=== PATIENT | female | born 1955 | race African-American/Black ===

== ENCOUNTER 2021-02-26 10:18 | Inpatient (IN) | payer MEDICARE, MEDICAID ==
[~2021-02-26] VITALS: Ht 157.5 cm; Wt 75.7 kg
[2021-02-26 12:06] LABS: BASOPHILS % 0.5 % (0.0-2.0); EOSINOPHILS % 0.8 % (0.0-5.0); HEMATOCRIT. 36.9 % (36.0-48.0); HEMOGLOBIN. 12.5 g/dL (12.0-16.0); LYMPHOCYTES % 34.1 % (20.0-50.0); MEAN CORPUSCULAR HEMOGLOBIN 27.4 pg (28.0-32.0); MEAN CORPUSCULAR VOLUME 80.8 fL (81.0-99.0); MEAN PLATELET VOLUME 8.8 fl (7.4-10.4); MONOCYTES % 6.2 % (2.0-8.0); NEUTROPHILS % 58.4 % (40.0-76.0); PLATELET 242 x1000/uL (130-400); RED BLOOD CELL COUNT 4.57 mill/uL (4.2-5.4); RED CELL DISTRIBUTION WIDTH 14.2 % (11.6-14.6)
[2021-02-26 12:11] LABS: CHLORIDE 103 mEq/L (98-107)
[2021-02-26] MEDS ORDERED: ASPIRIN 81MG TABLET PO ONE (13:15)
[2021-02-26] MEDS ORDERED: ACETAMINOPHEN 325MG TABLET PO PRN (17:30)
[2021-02-26] MEDS ORDERED: NITROGLYCERIN 0.4MG TABLET SL SL PRN (17:30)
[2021-02-26] MEDS ORDERED: CLONIDINE 0.1MG TABLET PO PRN (17:30)
[2021-02-26] MEDS ORDERED: LORAZEPAM 0.5MG TABLET PO PRN (17:30)
[2021-02-26] MEDS ORDERED: IPRATROPIUM/ALBUTEROL 0.5-3(2.5)MG/3ML NEB HHN PRN (17:30)
[2021-02-26] MEDS ORDERED: DOCUSATE SODIUM 100MG CAPSULE PO PRN (17:30)
[2021-02-26] MEDS ORDERED: ONDANSETRON HCL 4MG/2ML INJ IV PRN (17:30)
[2021-02-26 19:01] VITALS: BP 148/90
[2021-02-26 20:00] VITALS: BP 133/77
[2021-02-27] VITALS: BP 104/71
[2021-02-27] MEDS: HYDROCODONE/ACETAMINOPHEN 5/325MG TABLET PO PRN ×3 (01:34→17:56)
[2021-02-27 02:38] LABS: *AMPHETAMINES SCREEN URINE NEGATIVE (NEGATIVE); *BARBITURATES SCREEN URINE NEGATIVE (NEGATIVE); *BENZODIAZEPINES SCREEN URINE PRESUMTIVE POSITIVE (NEGATIVE); *COCAINE SCREEN URINE NEGATIVE (NEGATIVE); METHADONE URINE SCREEN NEGATIVE (NEGATIVE); OPIATES URINE SCREEN NEGATIVE (NEGATIVE)
[2021-02-27 02:39] LABS: CANNABINOID URINE SCREEN PRESUMTIVE POSITIVE (NEGATIVE); PHENCYCLIDINE URINE SCREEN NEGATIVE (NEGATIVE)
[2021-02-27 04:00] VITALS: BP 127/69
[2021-02-27] MEDS ORDERED: *PATIENT'S OWN MEDICATION STORAGE XX SCH (04:15)
[2021-02-27] MEDS ORDERED: MIRT-111 MT (05:16)
[2021-02-27] MEDS ORDERED: ALBU90AE2 (05:17)
[2021-02-27] MEDS ORDERED: FLUT1BLS3 INH (05:18)
[2021-02-27] MEDS ORDERED: ENAL10TA19 MT (05:26)
[2021-02-27] MEDS ORDERED: FLUT15.844 BOTHNSTRLS (05:27)
[2021-02-27] MEDS ORDERED: INFLUENZA VACCINE 05/PF 0.5 ML SYRINGE IM ONE ×2 (06:00→22:30)
[2021-02-27 08:00] VITALS: BP 156/89
[2021-02-27] MEDS: ACETAMINOPHEN 325MG TABLET PO PRN ×2 (09:38→17:57)
[2021-02-27 12:00] VITALS: BP 138/72
[2021-02-27 16:00] VITALS: BP 125/85
[2021-02-27] MEDS ORDERED: PANTOPRAZOLE 40MG DR TABLET PO SCH (17:20)
[2021-02-27 20:00] VITALS: BP 126/79
[2021-02-27] MEDS ORDERED: ATORVASTATIN CALCIUM 40MG TABLET PO SCH (21:00)
[2021-02-28] VITALS: BP 115/69
[2021-02-28] MEDS ORDERED: DEXTROSE 50% WATER 50ML SYRINGE IV PRN (01:15)
[2021-02-28 04:00] VITALS: BP 142/84
[2021-02-28] MEDS: HYDROCODONE/ACETAMINOPHEN 5/325MG TABLET PO PRN (04:18)
[2021-02-28] MEDS: BLOOD SUGAR DIAGNOSTIC STRIP TEST SCH ×2 (07:00→12:13)
[2021-02-28 08:15] VITALS: BP 154/88
[2021-02-28] MEDS ORDERED: ASPIRIN 81MG EC TABLET PO SCH (09:00)
[2021-02-28] MEDS ORDERED: NALOXONE HCL 0.4MG/ML VIAL IV PRN (11:45)
[2021-02-28] MEDS ORDERED: LIP40 PO (11:50)
[2021-02-28] MEDS ORDERED: METF-414 MT (11:50)
[2021-02-28] MEDS ORDERED: ASPI-1406 PO (11:50)
[2021-02-28] MEDS ORDERED: T4 PO (11:50)
[2021-02-28 12:23] VITALS: BP 117/88
[2021-02-28 12:28] VITALS: BP 117/88
[2021-02-28] MEDS ORDERED: ACETAMINOPHEN WITH CODEINE 300/60MG TABLET PO PRN (13:00)
[2021-02-28 16:15] VITALS: BP 140/87
== END 2021-02-28 17:05 | disposition home or self-care (01) | DRG 203 ==
LOC: ER 10:18 → 6WST 13:16 → ENRESERV 15:29
PROVIDERS: ADMIT Internal Medicine; ATTEND Internal Medicine
DX: M94.0 Chondrocostal junction syndrome [Tietze] (principal); E11.9 Type 2 diabetes mellitus without complications; I25.2 Old myocardial infarction; E78.00 Pure hypercholesterolemia, unspecified; I10 Essential (primary) hypertension; G89.29 Other chronic pain; F12.90 Cannabis use, unspecified, uncomplicated; M47.816 Spondylosis without myelopathy or radiculopathy, lumbar region; M51.36 Other intervertebral disc degeneration, lumbar region; E78.5 Hyperlipidemia, unspecified; J45.909 Unspecified asthma, uncomplicated; Z79.899 Other long term (current) drug therapy; Z88.1 Allergy status to other antibiotic agents; Z88.8 Allergy status to other drugs, medicaments and biological substances
CPT/HCPCS: 36415; 71045; 80053; 80305; 82962; 83036; 83880; 84484; 85025; 90686; 93005; 93306; 94640; 97161; 99285

== ENCOUNTER 2022-04-21 13:31 | Emergency (ER) | payer MEDICARE, MEDICAID ==
[~2022-04-21] VITALS: Ht 157.5 cm; Wt 80.0 kg
[~2022-04-21 13:31] MED LIST: ALBU90AE2; ASPI-1160 PO; ENAL20TA18 PO; FLUT15.844 BOTHNSTRLS; GABA-532 PO; METF-414 PO; METO25TA6 PO; RISP1 PO; T4 PO
[2022-04-21 13:37] VITALS: BP 191/91
[2022-04-21 16:40] LABS: BASOPHILS % 0.5 % (0.0-2.0); HEMATOCRIT. 34.5 % (36.0-48.0); HEMOGLOBIN. 11.6 g/dL (12.0-16.0); LYMPHOCYTES % 22.5 % (20.0-50.0); MEAN CORPUSCULAR HEMOGLOBIN 27.4 pg (28.0-32.0); MEAN CORPUSCULAR VOLUME 81.3 fL (81.0-99.0); MEAN PLATELET VOLUME 9.1 fl (7.4-10.4); MONOCYTES % 5.4 % (2.0-8.0); NEUTROPHILS % 70.6 % (40.0-76.0); PLATELET 219 x1000/uL (130-400); RED BLOOD CELL COUNT 4.24 mill/uL (4.2-5.4); RED CELL DISTRIBUTION WIDTH 15.8 % (11.6-14.6)
[2022-04-21 16:51] LABS: CHLORIDE 103 mEq/L (98-107)
[2022-04-21] MEDS ORDERED: PREDNISONE 20MG TABLET PO ONE (19:30)
[2022-04-21] MEDS ORDERED: ALBU6.7H3 INH (20:44)
[2022-04-21] MEDS ORDERED: P20 MT (20:44)
[2022-04-21] MEDS ORDERED: ENAL20TA18 MT (20:44)
[2022-04-21] MEDS ORDERED: ASPI-1497 MT (20:44)
[2022-04-21] MEDS ORDERED: ALBU90AE2 INH (20:44)
[2022-04-21] MEDS ORDERED: B50 MT (21:01)
== END 2022-04-21 21:12 | disposition home or self-care (01) ==
LOC: ER 13:31
DX: J06.9 Acute upper respiratory infection, unspecified (principal); R07.89 Other chest pain; J44.9 Chronic obstructive pulmonary disease, unspecified; I11.9 Hypertensive heart disease without heart failure; E11.9 Type 2 diabetes mellitus without complications; K58.9 Irritable bowel syndrome, unspecified; I25.2 Old myocardial infarction; F12.10 Cannabis abuse, uncomplicated; Z76.0 Encounter for issue of repeat prescription; Z20.822 Contact with and (suspected) exposure to COVID-19; Z98.890 Other specified postprocedural states; Z79.84 Long term (current) use of oral hypoglycemic drugs; Z88.1 Allergy status to other antibiotic agents
CPT/HCPCS: 36415; 71045; 80053; 84484; 85025; 87420; 87426; 93005; 99285; C9803; J7512

== ENCOUNTER 2022-05-01 18:11 | Emergency (ER) | payer MEDICARE, MEDICAID ==
[~2022-05-01] VITALS: Ht 167.6 cm; Wt 80.0 kg
[~2022-05-01 18:11] MED LIST changes: +ALBU6.7H3 INH; -ALBU90AE2; +ALBU90AE2 INH; +ASPI-1497 MT; +B50 MT; +ENAL20TA18 MT; +P20 MT
[2022-05-01 18:13] VITALS: BP 117/71
== END 2022-05-01 20:49 | disposition home or self-care (01) ==
LOC: ER 18:11
DX: R07.9 Chest pain, unspecified (principal); T44.7X1A Poisoning by beta-adrenoreceptor antagonists, accidental (unintentional), initial encounter; T44.7X5A Adverse effect of beta-adrenoreceptor antagonists, initial encounter; Y92.9 Unspecified place or not applicable; J45.909 Unspecified asthma, uncomplicated; I11.9 Hypertensive heart disease without heart failure; E11.9 Type 2 diabetes mellitus without complications; I25.2 Old myocardial infarction; J44.9 Chronic obstructive pulmonary disease, unspecified; Z88.1 Allergy status to other antibiotic agents; Z88.3 Allergy status to other anti-infective agents; Z88.6 Allergy status to analgesic agent; Z79.82 Long term (current) use of aspirin; Z98.890 Other specified postprocedural states
CPT/HCPCS: 99283

== ENCOUNTER 2023-01-08 07:37 | Emergency (ER) | payer MEDICARE, OTHER ==
[~2023-01-08] VITALS: Ht 165.1 cm; Wt 86.0 kg
[~2023-01-08 07:37] MED LIST changes: +ENAL-79 MT; +ENAL-79 PO; -ENAL20TA18 MT; -ENAL20TA18 PO
[2023-01-08 07:43] VITALS: BP 170/88; PULSE 84; RESP 18; TEMP 98.4; O2SAT 100
[2023-01-08] MEDS ORDERED: MORPHINE SULFATE 4 MG/ML CPJ (NOT FOR IM USE) IV ONE (07:45)
== END 2023-01-08 10:57 | disposition left against medical advice (07) ==
LOC: ER 07:37
DX: R07.89 Other chest pain (principal); F12.10 Cannabis abuse, uncomplicated; I10 Essential (primary) hypertension; E11.9 Type 2 diabetes mellitus without complications; J44.1 Chronic obstructive pulmonary disease with (acute) exacerbation; Z88.1 Allergy status to other antibiotic agents; Z88.3 Allergy status to other anti-infective agents; Z79.899 Other long term (current) drug therapy
CPT/HCPCS: 93005; 99283